=== PATIENT | male | born 1960 | race Caucasian/White ===

== ENCOUNTER 2017-05-11 14:36 | Emergency (ER) | payer OTHER ==
[2017-05-11 14:38] VITALS: BP 160/90; PULSE 82; RESP 16; TEMP 97.9; O2SAT 98
--- NOTE | 2017-05-11 15:13 | RADRPT ---
EXAM DATE/TIME: 05/11/2017 15:02 [place] COMPARISON: No previous studies available for comparison. INDICATIONS : Piece of steel at work went into his right 1st digit today. MEDICAL HISTORY : None. SURGICAL HISTORY : None. ENCOUNTER: Initial ACUITY: 1 day PAIN SCORE: 7/10 LOCATION: Right 1st digit FINDINGS: There is a J-shaped metallic density lodged in the soft tissues of the distal 1st digit. There is 4 mm separation between the foreign body and the distal tuft. The osseous structures of the 1st digit are grossly intact. CONCLUSION: Metallic foreign body in the soft tissues of the distal 1st digit. The osseous structures are grossl y intact. Janak Yeh MD on May 11, 2017 at 15:10 Board Certified Radiologist. This report was verified electronically.
[2017-05-11] MEDS ORDERED: EZET1TAB8 PO (16:11)
[2017-05-11] MEDS ORDERED: GLUC500T4 PO (16:11)
[2017-05-11] MEDS ORDERED: ATOR40TA16 PO (16:11)
[2017-05-11] MEDS ORDERED: MULTTAB67 PO (16:11)
[2017-05-11] MEDS ORDERED: ASPI81CH6 CHEW (16:11)
[2017-05-11] MEDS ORDERED: LIDOCAINE HCL 1% 30 ML VIAL INFIL ONE (16:15)
[2017-05-11] MEDS ORDERED: TETANUS/DIPHTHERIA TOXOID ADULT 0.5 ML VIAL IM ONE (16:15)
--- NOTE | 2017-05-11 16:19 | PD ---
HPI Chief Complaint: Foreign Body Time Seen by Provider: 16:14 Travel History International Travel<30 days: No Contact w/Intl Traveler<30days: No Traveled to known affect area: No History of Present Illness HPI 57-year-old male presents for evaluation of foreign body in the right thumb. 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 He has mild pain at the site of the foreign body, worse with palpation. Denies any numbness or tingling. Last tetanus vaccination 10 years ago. No other complaints. PFSH Social History Alcohol Use: Yes Tobacco Use: Yes Allergies-Medications (Allergen,Severity, Reaction): Coded Allergies: No Known Allergies (Unverified , 05/11/17) Reported Meds & Prescriptions Reported Meds & Active Scripts Active Keflex (Cephalexin) 500 Mg Capsule 500 Mg PO Q8H 5 Days Reported Multiple Vitamin 1 Tab 1 Tab PO DAILY Ezetimibe 10 Mg Tab 10 Mg PO DAILY Glucosamine-Chondroitin 500-400 Mg Tab 1 Tab PO DAILY Atorvastatin (Atorvastatin Calcium) 40 Mg Tab 40 Mg PO HS Aspirin Low Dose (Aspirin) 81 Mg Chew 81 Mg CHEW DAILY Review of Systems Musculoskeletal: Positive: Pain Skin: Positive Other (puncture wound, foreign body) Physical Exam Narrative GENERAL: Well-nourished male in no acute distress SKIN: Warm and dry. Extremities: Metallic foreign body noted embedded in the right fifth finger. Sensation preserved. Capillary refill less than 2 seconds. Data Data Last Documented VS Vital Signs Date Time Temp Pulse Resp B/P (MAP) Pulse Ox O2 Delivery O2 Flow Rate FiO2 05/11/17 14:38 97.9 82 16 160/90 (113) 98 Room Air Orders Orders Finger ([id number]) (05/11/17 ) Tetanus/Diphtheria Tox Adult (Tetanus/Di (05/11/17 16:15) Lidocaine Pf 1% Inj (Xylocaine-Mpf 1% In (05/11/17 16:45) Ed Discharge Order (05/11/17 17:02) MDM Medical Decision Making Medical Screen Exam Complete: Yes Emergency Medical Condition: Yes Medical Record Reviewed: Yes Differential Diagnosis Retained foreign body, puncture wound, laceration Narrative Course Tetanus status updated. The foreign body will be removed, he verbally consents. Foreign body removal: Right thumb was prepped with Betadine, digital block performed 1% lidocaine. The foreign body was removed. The wound was irrigated. Patient tolerated procedure well. Diagnosis Primary Impression: Foreign body finger Additional Instructions: Medication as prescribed. Wash several times a day with soap and water and apply antibiotic cream. Return for any emergent medical conditions. Med/Other Pt SpecificInfo: Prescription(s) given, Wound Care Scripts Cephalexin (Keflex) 500 Mg Capsule 500 MG PO Q8H for Infection for 5 Days, #15 CAP 0 Refills Prov: Abhi Marques MD 05/11/17 Disposition: 01 DISCHARGE HOME Condition: Stable Adithya Perez May 11, 2017 16:19
[2017-05-11] MEDS ORDERED: LIDOCAINE HCL 1% PF 30 ML VIAL INFIL ONE (16:45)
[2017-05-11] MEDS ORDERED: CEPH-460 PO (17:02)
== END 2017-05-11 17:27 | disposition home or self-care (01) ==
LOC: NEPK 14:36
DX: S61.041A Puncture wound with foreign body of right thumb without damage to nail, initial encounter (principal); Y93.89 Activity, other specified; Y99.0 Civilian activity done for income or pay
CPT/HCPCS: 10120; 64450; 73140